=== PATIENT | female | born 1960 | race Two or more races ===

== ENCOUNTER 2024-04-16 22:49 | Inpatient (IN) | payer MEDICAID ==
[~2024-04-16] VITALS: Ht 157.5 cm; Wt 73.0 kg
[~2024-04-16 22:49] MED LIST: ASPI1TAB20 PO; INSLISPI SC; LEVEMIR SC; LORA-1105 PO; LOS50T PO; METF-370 PO; SIMV20TA20 PO
[2024-04-17] MEDS: ONDANSETRON HCL 4 MG/2 ML VIAL IV ONE
[2024-04-17 00:14] LABS: Basophils # (auto) 0 10 ^3/uL (0-0.2); Basophils % (auto) 0.6 % (0.0-2.0); Eosinophils # (auto) 0.1 10 ^3/uL (0-0.8); Eosinophils % (auto) 1.2 % (0.0-7.0); Hematocrit 41.1 % (36.0-46.0); Lymphocytes # (auto) 2.8 10 ^3/uL (0.4-5.4); Lymphocytes % (auto) 42.9 % (10.0-50.0); Mean Corpuscular Hemoglobin 31.4 pg (28.0-32.0); Mean Corpuscular Hgb Conc. 34.1 g/dL (32.0-36.0); Mean Corpuscular Volume 92.1 fL (80.0-100.0); Monocytes # (auto) 0.6 10 ^3/uL (0-1.3); Monocytes % (auto) 9.1 % (0.0-12.0); Neutrophils % (auto) 46.2 % (37.0-80.0); Nucleated Red Blood Cells % 0.1 %; Red Blood Cells 4.47 10^6/uL (4.0-5.20); White Blood Cell 6.4 10^3/uL (4.4-10.8)
[2024-04-17 00:21] LABS: Chloride 106 mmol/L (98-107); Potassium 4.1 mmol/L (3.5-5.1); Sodium 139 mmol/L (136-145)
[2024-04-17 00:22] LABS: Anion Gap 7 (5-15); Calcium 9.9 mg/dL (8.7-10.4); Carbon Dioxide 26 mmol/L (20-30)
[2024-04-17 00:27] LABS: BUN/Creatinine Ratio 21.9 (10.0-20.0); Blood Urea Nitrogen 16 mg/dL (9-23); Glucose 175 mg/dL (74-106)
[2024-04-17] MEDS: ACETAMINOPHEN 325 MG TAB PO ONE (03:21)
[2024-04-17 03:25] VITALS: PULSE 80; O2SAT 98
[2024-04-17] MEDS: SODIUM CHLORIDE 0.9% 1,000 ML IV ONE (04:03)
[2024-04-17 06:07] LABS: Urine Bacteria None Seen /hpf (None Seen)
[2024-04-17] MEDS ORDERED: cloNIDine HCL 0.1 MG TAB PO PRN (06:15)
[2024-04-17] MEDS ORDERED: ALPRAZolam 0.5 MG TAB PO PRN (06:15)
[2024-04-17] MEDS ORDERED: DEXTROSE (50%) 50ML SYRG IV PRN (06:15)
[2024-04-17] MEDS ORDERED: ONDANSETRON HCL 4 MG/2 ML VIAL IV PRN (06:15)
[2024-04-17 06:20] LABS: Urine Blood Negative /uL (Negative); Urine Clarity Clear (Clear); Urine Color Light-Yellow (Yellow); Urine Protein, UAD Negative (Negative); Urine Urobilinogen Normal (Negative); Urine WBC 1 /hpf (0 - 5); Urine pH 5.5 (5.0-9.0)
[2024-04-17] MEDS: InsuLIN REG 1unit/0.01ml Soln (100units/ml) SC SCH (07:08)
[2024-04-17] MEDS: ACCU-CHEK COMFORT CURVE STRIP VI SCH (07:09)
[2024-04-17] MEDS: LOSARTAN POTASSIUM 50 MG TAB PO SCH (10:46)
[2024-04-17] MEDS: ACETAMINOPHEN 325 MG TAB PO PRN (16:50)
[2024-04-17] MEDS ORDERED: CLON0.1T PO (17:09)
[2024-04-17 17:42] VITALS: BP 124/77; PULSE 76; RESP 14; TEMP 98; O2SAT 98
== END 2024-04-18 17:48 | disposition home or self-care (01) | DRG 199 ==
LOC: ER 22:49 → OVERFLOW 04-17 06:16
PROVIDERS: ADMIT Nurse Practitioner; ATTEND Nurse Practitioner Acute Care
DX: I16.9 Hypertensive crisis, unspecified (principal); E11.9 Type 2 diabetes mellitus without complications; E78.5 Hyperlipidemia, unspecified; F41.9 Anxiety disorder, unspecified; Z85.3 Personal history of malignant neoplasm of breast
CPT/HCPCS: 36415; 80048; 81001; 84484; 85025; G0378; J1815